=== PATIENT | male | born 2000 | race Hispanic/Latino ===

== ENCOUNTER 2024-06-20 03:57 | Emergency (ER) | payer SELFPAY ==
--- NOTE | 2024-06-20 08:02 | ER ---
Nurse's Notes [facility] Name: Steven Orellana Age: 24 yrs Sex: Male : 2000 Arrival Date: 06/20/2024 Time: 03:57 Bed 14 Private MD: Diagnosis: Rhabdomyolysis;Dehydration Presentation: 06/20 04:16 Chief complaint: Patient states: "my eyelids are numb and I have no tears. My hands are cp4 clammy. I went to dry off after my shower and I was already dry. My tongue is also numb.". Coronavirus screen: Client denies travel out of the [place] in the last 14 days. At this time, the client does not indicate any symptoms associated with coronavirus-19. Ebola Screen: Patient negative for fever greater than or equal to 101.5 degrees Fahrenheit, and additional compatible Ebola Virus Disease symptoms Patient denies exposure to infectious person. Patient denies travel to an Ebola-affected area in the 21 days before illness onset. No symptoms or risks identified at this time. Initial Sepsis Screen: Does the patient meet any 2 criteria? RR > 20 per min. Does the patient have a suspected source of infection? No. Patient's initial sepsis screen is negative. Risk Assessment: Do you want to hurt yourself or someone else? Patient reports no desire to harm self or others. Onset of symptoms was June 19, 2024. 04:16 Method Of Arrival: Ambulatory cp4 04:16 Acuity: ALEJANDRA 4 cp4 04:30 Acuity: ALEJANDRA 3 cp4 Triage Assessment: 04:19 General: Appears in no apparent distress. comfortable, Behavior is calm, cooperative, cp4 appropriate for age. Pain: Denies pain. EENT: No deficits noted. Neuro: Level of Consciousness is awake, alert, obeys commands, Oriented to person, place, time, situation. Cardiovascular: Patient's skin is warm and dry. Respiratory: Airway is patent Respiratory effort is even, unlabored. GI: No signs and/or symptoms were reported involving the gastrointestinal system. : No signs and/or symptoms were reported regarding the genitourinary system. Derm: No signs and/or symptoms reported regarding the dermatologic system. Musculoskeletal: No signs and/or symptoms reported regarding the musculoskeletal system. Historical: - Allergies: 04:19 No Known Allergies; cp4 - Immunization history:: Adult Immunizations up to date. - Infectious Disease History:: Denies. - Social history:: Smoking status: Patient denies any tobacco usage or history of. - Family history:: not pertinent. - Hospitalizations: : No recent hospitalization is reported. Screenin:20 [facility] ED Fall Risk Assessment (Adult) History of falling in the last 3 months, cp4 including since admission No falls in past 3 months (0 pts) Confusion or Disorientation No (0 pts) Intoxicated or Sedated No (0 pts) Impaired Gait No (0 pts) Mobility Assist Device Used No (0 pt) Altered Elimination No (0 pt) Score/Fall Risk Level 0 - 2 = Low Risk Oriented to surroundings, Maintained a safe environment, Assessed \\T\\ reinforced patient's understanding of fall precautions, Hourly rounding (assess needs \\T\\ fall precautionary measures) done. Abuse screen: Denies threats or abuse. Nutritional screening: No deficits noted. Tuberculosis screening: No symptoms or risk factors identified. Assessment: 04:20 Reassessment: No changes from previously documented assessment. cp4 Vital Signs: 04:16 BP 131 / 99; Pulse 83; Resp 18; Temp 98.2; Pulse Ox 100% ; Weight 106.59 kg; Height 5 cp4 ft. 10 in. ; Pain 0/10; 05:18 BP 128 / 81; Pulse 67; Resp 18; Pulse Ox 99% ; cp4 06:28 BP 125 / 88; Pulse 83; Resp 18; Pulse Ox 100% ; cp4 04:16 Body Mass Index 33.72 (106.59 kg, 177.8 cm) cp4 04:16 Pain Scale: Adult cp4 ED Course: 04:09 Patient arrived in ED. gm2 04:10 Yossi Garvey MD is Attending Physician. rn 04:16 Claritza Chun is Primary Nurse. cp4 04:19 Triage completed. cp4 04:19 Arm band placed on right wrist. Patient placed in waiting room. cp4 04:20 Bed in low position. Call light in reach. Side rails up X 1. cp4 04:20 No provider procedures requiring assistance completed. cp4 04:49 Missed attempt(s): 20 gauge in right antecubital area. Bleeding controlled, band aid cp4 applied, catheter tip intact. 04:49 Initial lab(s) drawn, by me, sent to lab. cp4 04:50 Inserted saline lock: 22 gauge in right wrist, using aseptic technique. Blood oe collected. Flushed with 10 mL NS. 04:52 EKG done, by ED staff, reviewed by Yossi Garvey MD. oe 06:29 Provided Education on: dehydration. cp4 06:29 intact, bleeding controlled, No redness/swelling at site. Pressure dressing applied. cp4 Administered Medications: 04:48 Drug: NS 0.9% IV 1000 ml IV at 1000 ml once; to be given as a bolus over 60 minutes cp4 Route: IV; Rate: 1000 ml; Site: right wrist; 06:28 Follow up: IV Status: Completed infusion cp4 Medication: 04:20 VIS not applicable for this client. cp4 Outcome: 06:16 Discharge ordered by MD. rn 06:29 Discharged to home ambulatory, cp4 06:29 Condition: stable 06:29 Discharge instructions given to patient, Instructed on discharge instructions, follow up and referral plans. Demonstrated understanding of instructions, follow-up care, 06:29 Patient left the ED. cp4 Signatures: Yossi Garvey MD MD rn Espinosa, Orlando oe Potter, Christina cp4 Caron Ca 2 Corrections: (The following items were deleted from the chart) 04:51 04:49 Inserted saline lock: 20 gauge in right wrist, using aseptic technique. cp4 oe
--- NOTE | 2024-06-20 08:02 | EDPHYS ---
Physician Documentation [facility] Name: Steven Orellana Age: 24 yrs Sex: Male : 2000 Arrival Date: 06/20/2024 Time: 03:57 Bed 14 Private MD: ED Physician Yossi Garvey HPI: 06/20 05:24 This 24 yrs old Male presents to ER via Ambulatory with complaints of rn Dizziness, numbness, cramping. 05:24 The patient presents with generalized weakness. Onset: The symptoms/episode rn began/occurred 4 day(s) ago. Modifying factors: The symptoms are alleviated by nothing, the symptoms are aggravated by standing up, changing position. Severity of symptoms: At their worst the symptoms were mild in the emergency department the symptoms are unchanged. The patient has not experienced similar symptoms in the past. Patient reports started Thursday with getting overheated and dehydrated at work. Since then has been off of work and tried hydrating with fluids but has been feeling tingling all over, generalized weakness and malaise and leg cramping. Denies any fever or chills. No chest pain or shortness of breath. No abdominal pain. No vomiting or diarrhea. Reports had an episode where he got lightheaded and tunnel vision but did not have syncopal episode.. Historical: - Allergies: 04:19 No Known Allergies; cp4 - Immunization history:: Adult Immunizations up to date. - Infectious Disease History:: Denies. - Social history:: Smoking status: Patient denies any tobacco usage or history of. - Family history:: not pertinent. - Hospitalizations: : No recent hospitalization is reported. ROS: 05:24 Constitutional: Negative for fever, chills, and weight loss, Eyes: Negative for injury, rn pain, redness, and discharge, ENT: Negative for injury, pain, and discharge, Neck: Negative for injury, pain, and swelling, Cardiovascular: Negative for chest pain, palpitations, and edema, Respiratory: Negative for shortness of breath, cough, wheezing, and pleuritic chest pain, Abdomen/GI: Negative for abdominal pain, nausea, vomiting, diarrhea, and constipation, Back: Negative for injury and pain, MS/Extremity: Negative for injury and deformity, Skin: Negative for injury, rash, and discoloration, Neuro: Positive for generalized weakness and dizziness. No focal weakness Exam: 05:21 ECG was reviewed by the Attending Physician. rn 05:24 Constitutional: This is a well developed, well nourished patient who is awake, alert, rn and in no acute distress. Seems anxious Head/Face: Normocephalic, atraumatic. Eyes: Pupils equal round and reactive to light, extra-ocular motions intact. ENT: Dry mucous membranes Cardiovascular: Regular rate and rhythm. No pulse deficits. Respiratory: No increased work of breathing, no retractions or nasal flaring. Abdomen/GI: Soft, non-tender MS/ Extremity: Pulses equal, no cyanosis. Neurovascular intact. Full, normal range of motion. Equal circumference. Neuro: Awake and alert, GCS 15, oriented to person, place, time, and situation. Cranial nerves II-XII grossly intact. Motor strength 5/5 in all extremities. Sensory grossly intact. Cerebellar exam normal. Normal gait. Vital Signs: 04:16 BP 131 / 99; Pulse 83; Resp 18; Temp 98.2; Pulse Ox 100% ; Weight 106.59 kg; Height 5 cp4 ft. 10 in. ; Pain 0/10; 05:18 BP 128 / 81; Pulse 67; Resp 18; Pulse Ox 99% ; cp4 06:28 BP 125 / 88; Pulse 83; Resp 18; Pulse Ox 100% ; cp4 04:16 Body Mass Index 33.72 (106.59 kg, 177.8 cm) cp4 04:16 Pain Scale: Adult cp4 MDM: 04:10 Medical Screening Exam initiated rn 06:16 Differential diagnosis: generalized weakness, hypovolemia, idiopathic dizziness, Acute rn kidney injury, rhabdomyolysis. Data reviewed: vital signs, nurses notes, lab test result(s), and as a result, I will discharge patient. Counseling: I had a detailed discussion with the patient and/or guardian regarding the historical points, exam findings, and any diagnostic results supporting the discharge/admit diagnosis, lab results, the need for outpatient follow up, to return to the emergency department if symptoms worsen or persist or if there are any questions or concerns that arise at home. Special discussion: I discussed with the patient/guardian in detail that at this point there is no indication for admission to the hospital. It is understood, however, that if the symptoms persist or worsen the patient needs to return immediately for re-evaluation. 06:17 ED course: Patient still shows signs of rhabdomyolysis, no kidney injury and stable rn vital signs. Improved after IV hydration. Will discharge home with continued rehydration and a few days off with return precautions.. 06/20 04:25 Order name: IV Start; Complete Time: 04:48 rn 06/20 04:25 Order name: EKG - Nurse/Tech; Complete Time: 04:40 rn EC:21 Rate is 70 beats/min. Rhythm is regular. QRS [place] is Normal. OK interval is normal. QRS rn interval is normal. QT interval is normal. No Q waves. T waves are Normal. No ST changes noted. Clinical impression: Normal ECG. Interpreted by me. Reviewed by me. Administered Medications: 04:48 Drug: NS 0.9% IV 1000 ml IV at 1000 ml once; to be given as a bolus over 60 minutes cp4 Route: IV; Rate: 1000 ml; Site: right wrist; 06:28 Follow up: IV Status: Completed infusion cp4 Disposition Summary: 06/20/24 06:16 Discharge Ordered Notes: Location: Home rn Problem: an ongoing problem rn Symptoms: have improved rn Condition: Stable rn Diagnosis - Rhabdomyolysis rn - Dehydration rn Followup: rn - With: Private Physician - When: As needed - Reason: Recheck today's complaints, Re-evaluation by your physician Discharge Instructions: - Discharge Summary Sheet rn - Dehydration, Adult rn - Rhabdomyolysis rn Forms: - Medication Reconciliation Form rn - Antibiotic element burner - Prescription Opioid Use rn - Patient Portal Instructions rn - Leadership Thank You Letter rn - Work release form cp4 Signatures: Yossi Garvey MD MD rn Potter, Christina 4
--- OUTSIDE RECORDS SUMMARY | 2024-06-20 08:03 | XMS REPORT | Continuity of Care Document ---
Author Name Unknown Address [address] [facility] [address] [facility] [address] [place] [address] [facility] thconnect Address [address] 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 Role Phone PCP, PATIENT DOES NOT HAVE A Primary Care Physic jong Nithin Vallecillo Attending Clinician Unavailable ASAEL IZAGUIRRE Attending Clinician Unavailab ASAEL Hinkle Attending Clinician Unavailab JENNA Escobar Attending Clinician UnavailJenna Grajeda Attending Clinician [phone] Unknown, Attending Attending Clinician Unavailab le Allergies, Adverse Reactions, Alerts Allergy Name Allergy Type Status Severity Reaction(s) Onset Date Inactive Date Treating Clinician Comments Source NO KNOWN ALLERGIE S Drug Class Active [facility] Social History Social Habit Start Date Stop Date Quantity Comments Source History of Tobacco Use [facility] Sex Assigned At [facility] Sexual orientation [facility] Smoking Status Start Date Stop Date Source Tobacco smoking consumption unknown [facility] Former Smoker 2024-05-10 00:00:00 2024-05-10 00:00:00 [facility] Medications Ordered Medication Name Filled Medication Name Start Date Stop Date Current Medication? Ordering Clinician Indication Dosage Frequency Signature (SIG) Comments Components Source omeprazole 40 mg capsule 03-23 00:00: 00 Yes [id number] 40mg Take 1 capsule by mouth in the morning. [facility] Ashwagandha 125 MG Ashwagandha 125 MG No Ashwagandh a 125 MG Vital Signs Vital Name Observation Time Observation Value Comments S ource temperature 2024-05-10 15:00:00 97.5 [degF] Com mon [facility] bmi 2024-05-10 15:00:00 34.4 kg/m2 [facility] n [facility] oximetry 2024-05-10 15:00:00 96 % [facility] blood pressure systolic 2024-05-10 15:00:00 111 mm[Hg] [facility] blood pressure diastolic 2024-05-10 15:00:00 69 mm[Hg] [facility] height 2024-05-10 15:00:00 70 [in_i] [facility] weight 2024-05-10 15:00:00 239.8 [lb_av] Co mmon [facility] Systolic blood pressure 2024-03-23 19:02:00 129 mm[Hg] [facility] Diastolic blood pressure 2024-03-23 19:02:00 86 mm[Hg] [facility] Heart rate 2024-03-23 19:02:00 80 /min [facility] Body temperature 2024-03-23 19:02:00 36.89 Yamel [facility] Respiratory rate 2024-03-23 19:02:00 16 /min [facility] Body weight 2024-03-23 19:02:00 108.999 kg [facility] Oxygen saturation in Arterial blood by Pulse oximetry 2024-03-23 19:02:00 98 /min [facility] Encounters Start Date/Time End Date/Time Encounter Type Admission Type Attending Clinicians Care Facility Care Department Encounter ID Source 2024-05-10 14:08:02 Out[facility] [id number] [facility] 2024-05-10 00:00:00 2024-05-10 00:00:00 OFFICE VISIT NEW PT LEVEL [facility] [id number] [facility] 2024-03-28 08:00:00 2024-03-28 08:00:00 Outpatient R OBI-GLADYS ASAEL OBI-GLADYS ASAEL [facility] [id number] [facility] 2024-03-23 13:40:00 2024-03-23 14:30:00 Outpatient R JENNA VUONG [facility] [id number] [facility] 2024-03-23 13:40:00 2024-03-23 14:30:00 Urgent Care Jenna Vuong, Attending [facility] [id number] [facility]
[2024-06-20 08:05] VITALS: TEMP 98.2
[2024-06-20 08:07] VITALS: BP 125/88; O2SAT 100
[2024-06-20 08:20] LABS: Anion Gap 8.5 mEq/L (5.0-15.0); Magnesium 2.3 mg/dL (1.6-2.4); Potassium 3.5 mEq/L (3.5-5.1)
[2024-06-20 08:22] LABS: Absolute Lymphocytes (CBC) 0.9 K/uL (0.7-4.9); Absolute Monocytes 0.6 K/uL (0.1-1.3); Basophils % 0.5 % (0-1.3); Eosinophils % 0.9 % (0-4.4); Hematocrit 40.5 % (39.6-49.0); Hemoglobin 13.8 g/dL (13.6-17.9); Lymphocytes % 18.7 % (15.3-44.8); MCH 29.2 pg (27.0-35.0); MCHC 34.2 g/dL (32.0-36.0); MCV 85.4 fL (80-100); MPV 8.5 fL (7.6-11.3); Monocytes % 13.9 % (3.3-12.3); Platelets 244 thou/uL (152-406); RBC Red Blood Cell Count 4.74 M/uL (4.33-5.43); Red Cell Distribution Width 13.6 % (12.1-15.2)
--- NOTE | 2024-06-20 12:02 | EKG ---
Test Date: 2024-06-20 Test Time: 04:38:40 Belt Sander Stone: CHILO MEASUREMENT RESULTS: Intervals: Rate: 70 NM: 166 QRSD: 94 QT: 388 QTc: 419 [place]: P: 71 NM: 166 QRS: 53 T: 44 INTERPRETIVE STATEMENTS: Normal sinus rhythm Normal ECG No previous ECG available for comparison Electronically Signed On 06-20-24 12:01:22 [employer]IST by Joe Sun
== END 2024-06-20 06:29 | disposition home or self-care (01) ==
LOC: ER 03:57
DX: M62.82 Rhabdomyolysis (principal); E86.0 Dehydration
CPT/HCPCS: 36415; 80048; 82550; 83735; 85025; 93005; 96360; 96361; 99284